=== PATIENT | male | born 1965 | race Caucasian/White ===

== ENCOUNTER 2017-07-12 09:10 | Observation (INO) | payer BC ==
[~2017-07-12] VITALS: Ht 180.3 cm; Wt 117.2 kg
[~2017-07-12 09:10] MED LIST: CIPRO500 MG PO; FLOMAX0.4 MG PO; NAPROSYN500 MG PO; NORCO 5/3251 TABLET PO; ZOFRAN4 MG PO; ZOFRAN8 MG PO
[2017-07-12 11:54] LABS: HEMATOCRIT 46.5 % (38.0-50.0); MCH 29.4 PG (29.0-34.0); MCHC 33.8 G/DL (30.0-36.0); MCV 87.1 FL (86-99); MEAN PLAT.VOLUME 9.2 uM^3 (9.0-12.4); PLATELET COUNT 294 K/uL (156-360); RBC DIS.WIDTH-CV 12.8 % (11.8-14.6); RBC DIS.WIDTH-SD 40.8 % (39-53); RED BLOOD COUNT 5.34 M/uL (4.00-5.50); WHITE BLOOD COUNT 7.8 K/uL (4.1-10.2)
[2017-07-12 12:03] LABS: CHLORIDE 107 mEq/L (99-109)
[2017-07-12 12:04] LABS: POTASSIUM 4.1 mEq/L (3.7-5.4); SODIUM 139 mEq/L (136-147)
[2017-07-12 12:05] LABS: GLUCOSE 87 mg/dL (70-99)
[2017-07-12 12:07] LABS: ANION GAP 7 MEQ/L (2-14)
[2017-07-12 12:09] LABS: GFR ESTIMATE (CALCULATED) > 59 mL/min/
[2017-07-12 12:10] LABS: UREA NITROGEN (BUN) 18 mg/dL (9-23)
[2017-07-12 12:16] LABS: TROP-I INTERPRETATION NEGATIVE; TROPONIN-I < 0.01 ng/mL (0.0-0.30)
[2017-07-12] MEDS ORDERED: TYLENOL EXTRA500 MG PO (16:33)
[2017-07-12 17:33] LABS: TROP-I INTERPRETATION NEGATIVE; TROPONIN-I 0.01 ng/mL (0.0-0.30)
[2017-07-12 20:05] VITALS: BP 136/79
[2017-07-12 23:12] LABS: TROP-I INTERPRETATION NEGATIVE; TROPONIN-I < 0.01 ng/mL (0.0-0.30)
[2017-07-13 04:37] VITALS: BP 110/58
[2017-07-13 07:45] VITALS: BP 124/81
[2017-07-13 11:21] VITALS: BP 133/64
[2017-07-13 15:29] VITALS: BP 123/62
[2017-07-13 19:00] VITALS: BP 123/65
[2017-07-13] MEDS ORDERED: ANTIVERT25 MG PO (22:44)
== END 2017-07-13 23:15 | disposition home or self-care (01) ==
LOC: EME 09:10 → 5WEST 13:15 → EDOF 13:15 → ENRESERV 13:23 → EDOF 13:43 → ENRESERV 18:13 → 5WEST 19:27
PROVIDERS: Hospitalist; Nurse Practitioner Family
DX: R00.1 Bradycardia, unspecified (principal); R42 Dizziness and giddiness; R51 Headache; H53.8 Other visual disturbances; R01.1 Cardiac murmur, unspecified; E66.9 Obesity, unspecified; E78.5 Hyperlipidemia, unspecified; Z82.49 Family history of ischemic heart disease and other diseases of the circulatory system; Z80.41 Family history of malignant neoplasm of ovary
CPT/HCPCS: 70450; 70544; 71020; 80048; 84443; 84484; 85027; 93005; 99281; 99285; G0378; J1650; J7030